=== PATIENT | female | born 1955 | race African-American/Black ===

== ENCOUNTER 2024-04-20 09:37 | Outpatient (CLI) | payer MEDICARE, MEDICAID, SELFPAY ==
[2024-04-20 10:19] LABS: Hemoglobin 16.8 g/dL (12.0-15.0)
[2024-04-20 10:30] LABS: INR 3.5
[2024-04-20 10:31] LABS: Partial Thromboplastin Time 39.7 Seconds (22.3-36.8)
[2024-04-20 10:34] LABS: Anion Gap 11 mmol/L (4-12); Blood Urea Nitrogen 31 mg/dL (7-17); Calcium 8.5 mg/dL (8.4-10.2); Carbon Dioxide 24 mmol/L (22-30); Chloride 110 mmol/L (98-107); Estimated Glomerular Filt Rate 49; Glucose 95 mg/dL (65-110); Potassium 3.4 mmol/L (3.4-5.0); Sodium 145 mmol/L (137-145)
== END 2024-04-20 09:38 | disposition home or self-care (01) ==
LOC: ANHSURGERY 09:45
PROVIDERS: Anesthesiology; PCP Nurse Practitioner Family; Visit Provider Student in an Organized Health Care Education/Training Program
DX: Z01.818 Encounter for other preprocedural examination (principal); E11.9 Type 2 diabetes mellitus without complications; N95.0 Postmenopausal bleeding; Z79.01 Long term (current) use of anticoagulants
CPT/HCPCS: 36415; 80048; 85014; 85018; 85610; 85730

== ENCOUNTER 2024-04-23 00:34 | Day surgery (SDC) | payer MEDICARE, MEDICAID, SELFPAY ==
[2024-04-16 09:43] VITALS: BMI 28.1
--- NOTE | 2024-04-16 09:53 | PC.NURSE ---
Report to the Outpatient Waiting Room, entrance under the green pavilion located off [facility], at time _0600_ on date _[id number]_. Planned Procedure Time: _0730_. Time changes happen often and if your time is changed the preop area will call you the afternoon before. - You and your visitor will be asked to self-screen and do not enter if you have any COVID symptoms. - A mask is optional within the hospital at this time. Patients may have clear liquids (water, carbonated beverages, clear teas, apple juice) until 3 hours prior to surgery with a maximum of 20 ounces. - No food from midnight until time of surgery Take the following medications with a SIP of water the morning of surgery: ____Takes all medications in the evening. Nothing surgery morning. DO NOT STOP ANY OF YOUR OTHER PRESCRIPTION MEDICATIONS PRIOR TO SURGERY ?EXCEPT THE FOLLOWING Medications to discontinue per physician ____Patient says told her to stop her Warfarin 2 days before surgery. Date to take last dose Please no make-up, nail citizen of [place], hairspray, perfume, deodorant, or body powder the day of surgery. No jewelry (including any body piercings) or valuables the day of surgery, leave them at home. Please take a shower or bath the night before, or the morning of, surgery with an antibacterial soap. Wear comfortable, loose fitting clothing. If you are going home after surgery, a licensed taxi driver must drive you home. - NO public transportation without another adult if you receive anesthesia. - We recommend that an adult stay with you for 24 hours following discharge. - We also recommend that you do not drive, make important decision, drink alcoholic beverages, or take any drugs that were not prescribed by your health care provider for at least 24 hours after your discharge time. Follow any additional instructions given to you from your surgeon. If you or anyone in your household have experienced Covid symptoms in the past week, please notify your surgeon or the nurse liaison at the phone number below for possible testing. Telephone instructions given to __Brittany___and asked if any additional questions and then verbalized understanding. Patient advised to call surgeon office or pre surgery nurse liaison [phone] if any additional questions.
--- NOTE | 2024-04-23 07:00 | P.PNAN_ITS ---
Anes - Initial Pre Proc Eval Procedure: Operation Date: 04/23/24 07:30 Proposed Procedures p Hysteroscopy, Dilation and Curettage - Noah Elizondo MD Date/Time: 04/23/24 07:00 Surgeon: Noah Elizondo MD Pre Op Diagnosis: post menopausal bleeding Patient Data Age: 69 Gender: F Height: 1.45 m Weight: 59 kg Allergies Allergy/AdvReac Type Severity Reaction Status Date / Time fish derived Allergy Mild Swelling Verified 04/16/24 09:40 banana AdvReac Mild Nausea and Verified 04/16/24 09:40 Vomiting Home Medications Medication Instructions Recorded Confirmed Type amiodarone 200 mg tablet 200 mg PO QPM 03/23/24 04/16/24 History aspirin 81 mg chewable tablet 81 mg PO QPM 03/23/24 04/16/24 History empagliflozin 10 mg tablet 10 mg PO QPM 03/23/24 04/16/24 History (Jardiance) furosemide 20 mg tablet 20 mg PO QPM 03/23/24 04/16/24 History lisinopril 2.5 mg tablet 2.5 mg PO QPM 03/23/24 04/16/24 History metoprolol succinate 25 mg 25 mg PO QPM 03/23/24 04/16/24 History tablet,extended release 24 hr potassium chloride 20 mEq 20 meq PO QPM 03/23/24 04/16/24 History tablet,extended release pravastatin 40 mg tablet 40 mg PO QPM 03/23/24 04/16/24 History warfarin 4 mg tablet 4 mg PO QPM 03/23/24 04/16/24 History Patient hx anesthesia problems: none Family hx anesthesia problems: none Results Review: All pre-operative results and documents have been reviewed as part of the pre- operative evaluation. [facility] Past Medical History Medical History Hyperlipidemia Hypertension Surgical History Surgical History History of delivery x 3 Family History Family History Mother Diabetes mellitus Sibling Breast cancer Social History Social History (Updated 03/23/24 @ 10:28 by NAYELI Moreno Smoking status: Never smoker Alcohol intake: never Substance use: never Living arrangements: with family Occupation/Education: retired Gender identity (if verbalized by the patient): Female Sexual Orientation (if Verbalized by the Patient): Straight or Heterosexual Spiritual care concerns: No Anes - Eval Final PreProcedure Day of Procedure 04/23/24 07:00 Patient weight: overweight Heart: regular rate and rhythm Lungs: clear to auscultation Airway: Mallampati scale and special considerations (R lower wisdom tooth sl loose. ) Neurological: alert and oriented Last oral intake: >/= 8 hours ASA classification: III Emergent: no Anesthetic plan: proceed Anesthesia type and monitoring: general GIVS and standard monitoring Results Review: All pre-operative results and documents have been reviewed as part of the pre- operative evaluation. HTN, hyperlipidemia, hx CVA approx 2004, pacemaker/defib recently, DM. Informed Consent: The patient's anesthetic plan and its attendant risks and benefits were discussed with the patient/family/POA. Questions were solicited and answers provided to the satisfaction of the patient/family/POA.
[2024-04-23 07:06] LABS: Glucose Point of Care 93 mg/dl (65-105)
[2024-04-23 07:10] VITALS: BP 112/84; PULSE 89; RESP 14; TEMP 36.2; O2SAT 99
[2024-04-23] MEDS: ACETAMINOPHEN 500 MG TABLET 1000 MG PO (07:10)
[2024-04-23] MEDS: LACTATED RINGERS 1,000 ML 30 ML IV CONT (07:10)
--- NOTE | 2024-04-23 07:16 | PM.IMHP ---
H&P: HPI History of Present Illness Date/Time: 04/23/24 07:16 Chief Complaint: postmenopausal bleeding thickened endometrium Narrative: ?68-year-old female who is referred to our office for management of postmenopausal bleeding.? Patient initially presented to her primary marketing content coordinator at the beginning of the month.? She was complaining of a week's worth of postmenopausal bleeding.? Endometrial biopsy was performed which returned benign polyp.? Patient continues have bleeding after endometrial biopsy.? Patient's marketing content coordinator does not operate any more and was sent here for surgical consultation.? In records review, a CT scan was performed in January.? CT scan showed a thickened endometrium.? Patient states her bleeding has stopped last week. Review of Systems Cardiovascular: Cardiovascular: Denies chest pain, Denies leg edema, Denies palpitations, Denies dyspnea and Denies dyspnea on exertion Respiratory: Respiratory: Denies cough, Denies dyspnea and Denies dyspnea on exertion Gastrointestinal: Gastrointestinal: Denies abdominal pain, Denies constipation, Denies diarrhea, Denies nausea and Denies vomiting Genitourinary: Genitourinary: Denies hematuria, Denies urinary frequency, Denies dysuria, Denies pelvic pain, Denies urinary incontinence and Denies vaginal discharge Neurologic: Reports system reviewed and no additional complaints, except as documented Psychiatric: Psychiatric: Reports no additional psychiatric complaints Endocrine: Endocrine: Denies palpitations PMFSH Past Medical History Medical History Hyperlipidemia Hypertension Surgical History Surgical History History of delivery x 3 Family History Family History Mother Diabetes mellitus Sibling Breast cancer Social History Social History (Updated 03/23/24 @ 10:28 by Candis Mariscal CMA) Smoking status: Never smoker Alcohol intake: never Substance use: never Living arrangements: with family Occupation/Education: retired Gender identity (if verbalized by the patient): Female Sexual Orientation (if Verbalized by the Patient): Straight or Heterosexual Spiritual care concerns: No Meds Home Medications and Allergies Home Medications Medication Instructions Recorded Confirmed Type amiodarone 200 mg tablet 200 mg PO QPM 03/23/24 04/16/24 History aspirin 81 mg chewable tablet 81 mg PO QPM 03/23/24 04/16/24 History empagliflozin 10 mg tablet 10 mg PO QPM 03/23/24 04/16/24 History (Jardiance) furosemide 20 mg tablet 20 mg PO QPM 03/23/24 04/16/24 History lisinopril 2.5 mg tablet 2.5 mg PO QPM 03/23/24 04/16/24 History metoprolol succinate 25 mg 25 mg PO QPM 03/23/24 04/16/24 History tablet,extended release 24 hr potassium chloride 20 mEq 20 meq PO QPM 03/23/24 04/16/24 History tablet,extended release pravastatin 40 mg tablet 40 mg PO QPM 03/23/24 04/16/24 History warfarin 4 mg tablet 4 mg PO QPM 03/23/24 04/16/24 History Allergies Allergy/AdvReac Type Severity Reaction Status Date / Time fish derived Allergy Mild Swelling Verified 04/16/24 09:40 banana AdvReac Mild Nausea and Verified 04/16/24 09:40 Vomiting Exam Const: General: no acute distress Eyes: EOM: EOMs intact bilaterally Neck: Neck: supple Thyroid: thyroid normal Chest: Breast/axilla inspection: normal inspection of the breasts Breast/axilla palpation: normal palpation of the breasts, normal palpation of the axillae and no axillary lymphadenopathy Resp: Effort & Inspection: normal respiratory effort Auscultation: clear to auscultation bilaterally Cardio: Rate: regular rate Rhythm: regular rhythm GI: Inspection: non-distended GI Palp: Yes Soft to palpation, No Tenderness to palpation present (GI) and No Guarding due to palpation present (GI) Ausc
--- NOTE | 2024-04-23 07:17 | WPDHPUPDATE1 ---
History and Physical Update Update Date/Time: 04/23/24 07:17 History and Physical has been reviewed, including an updated exam of the patient. There are NO changes in the patient's condition. Risks, benefits, and alternatives have been discussed and questions answered. Patient agrees to proceed with procedure.
[2024-04-23 07:19] LABS: INR 2.3; Prothrombin Time 26.8 Seconds (11.1-14.7)
[2024-04-23 07:20] LABS: Partial Thromboplastin Time 37.2 Seconds (22.3-36.8)
== END 2024-04-23 08:07 | disposition home or self-care (01) ==
PROVIDERS: Anesthesiology; PCP Nurse Practitioner Family; Visit Provider Student in an Organized Health Care Education/Training Program
DX: N95.0 Postmenopausal bleeding (principal); Z53.9 Procedure and treatment not carried out, unspecified reason; I10 Essential (primary) hypertension; E78.5 Hyperlipidemia, unspecified; Z79.84 Long term (current) use of oral hypoglycemic drugs; Z79.82 Long term (current) use of aspirin; Z79.01 Long term (current) use of anticoagulants
CPT/HCPCS: 36415; 82948; 85610; 85730; 99213; A9270; G0463; J3010; J7120